=== PATIENT | female | born 1995 | race Hispanic/Latino ===

== ENCOUNTER 2021-12-12 02:23 | Inpatient (IN) | payer OTHER ==
[2021-12-12 02:48] VITALS: BMI 32.5
[2021-12-12 03:43] LABS: Fetal Membranes Rupture No Membranes Rupture (No Rupture)
[2021-12-12] MEDS ORDERED: hydrALAZINE 20 MG/ML VIAL SLOW IVP PRN ×2 (06:25→08:10)
[2021-12-12 07:04] LABS: Creatinine, Urine 31.22 mg/dL (47-110); Protein, Urine Random Quant Less than 10 mg/dL (1-14)
[2021-12-12] MEDS ORDERED: Bupivacaine/Epinephrine 0.25% 30 ML VIAL ONE (08:00)
[2021-12-12] MEDS ORDERED: Lidocaine 2% MPF 10 ML AMP (For Epidural Use) ONE (08:00)
[2021-12-12] MEDS ORDERED: Bupivacaine HCl 0.5%/Epinephrine 1:200,000/PF 30 ml Vial ONE (08:00)
[2021-12-12] MEDS ORDERED: ePHEDrine Sulfate 50 MG/10 ML VIAL ONE (08:00)
[2021-12-12] MEDS ORDERED: Ibuprofen 800 MG TAB PO PRN (08:10)
[2021-12-12] MEDS ORDERED: HYDROcodone/Acetaminophen 5/325 mg Tablet PO PRN (08:10)
[2021-12-12] MEDS ORDERED: Lidocaine 1% (PF) 30 ML VIAL SC PRN (08:10)
[2021-12-12] MEDS ORDERED: Ondansetron PF 4 MG/2 ML Vial IVP PRN (08:10)
[2021-12-12] MEDS ORDERED: Butorphanol Tartrate 1 MG/ML VIAL SLOW IVP PRN (08:10)
[2021-12-12] MEDS ORDERED: NS w/ Oxytocin 30 units 500 ML IV SCH ×2 (08:15→10:26)
[2021-12-12] MEDS ORDERED: Misoprostol 100 MCG TAB VAG SCH (08:15)
[2021-12-12] MEDS ORDERED: Lactated Ringer's 1,000 ML IV SCH (08:15)
[2021-12-12 09:19] LABS: Hemoglobin 13.3 g/dL (12.0-15.5); Mean Corpuscular Hemoglobin 28.2 pg (27.0-33.0); Mean Corpuscular Volume 85.6 fl (81.6-98.3); Mean Platelet Volume 10.8 fl (7.4-10.4); Platelet Count 259 10x3/uL (150-450); Red Blood Cell (RBC) Count 4.71 10x6/uL (3.90-5.03); White Blood Cell (WBC) Count 10.2 10x3/uL (3.5-10.5)
[2021-12-12] MEDS: Lactated Ringer's 1,000 ML IV SCH ×3 (09:30→16:02)
[2021-12-12 09:43] LABS: ALT (SGPT) 19 U/L (8-55); AST (SGOT) 28 U/L (5-34); Albumin 3.8 g/dL (3.5-5.0); Alkaline Phosphatase 160 U/L (40-110); Anion Gap 15 mmol/L (10-20); BUN (Urea Nitrogen) 11 mg/dL (7.0-18.7); Bilirubin, Total 0.4 mg/dL (0.2-1.2); Calc. Creatinine Clearance 165 mL/min (70-130); Calcium 9.1 mg/dL (7.8-10.44); Carbon Dioxide 21 mmol/L (22-29); Chloride 104 mmol/L (98-107); Globulin 3.4 g/dL (2.4-3.5); Glucose 77 mg/dL (70-105); Protein, Total 7.2 g/dL (6.0-8.3); Sodium 136 mmol/L (136-145)
[2021-12-12 09:54] LABS: Hep B Surf Ag Non-Reactive S/CO (NonReactive)
[2021-12-12 09:55] LABS: Syphilis Antibody Nonreactive (Nonreactive); Syphilis Antibody Index 0.03 S/CO (<1.00 Non-Reactive)
[2021-12-12 09:57] LABS: HBSAg Index 0.19 S/CO (0-0.99)
[2021-12-12] MEDS ORDERED: NS w/ Oxytocin 10 units 500 ML IV SCH (10:30)
[2021-12-12] MEDS ORDERED: Fentanyl 2 mcg/Bup 0.1% Cadd 100 ML ONE (14:50)
[2021-12-13] MEDS ORDERED: Boostrix 0.5 ML (Tdap) VIAL IM ONE (00:12)
[2021-12-13] MEDS ORDERED: Promethazine HCl 25 MG/ML VIAL IM PRN (00:12)
[2021-12-13] MEDS ORDERED: Milk Of Magnesia 30 ML UDCUP PO PRN (00:12)
[2021-12-13] MEDS ORDERED: Lanolin Ointment 7 GM TUBE TOP PRN (00:12)
[2021-12-13] MEDS ORDERED: Ondansetron PF 4 MG/2 ML Vial IVP PRN (00:12)
[2021-12-13] MEDS ORDERED: diphenhydrAMINE 25 MG CAP PO PRN (00:12)
[2021-12-13] MEDS ORDERED: Bisacodyl 10 MG SUPP PR PRN (00:12)
[2021-12-13] MEDS ORDERED: hydrALAZINE 20 MG/ML VIAL SLOW IVP PRN (00:12)
[2021-12-13] MEDS ORDERED: HYDROcodone/Acetaminophen 5/325 mg Tablet PO PRN (00:12)
[2021-12-13] MEDS ORDERED: NS w/ Oxytocin 30 units 500 ML IV SCH (00:12)
[2021-12-13] MEDS ORDERED: Benzocaine-Menthol 82.5 ML CAN TOP PRN (00:12)
[2021-12-13 04:27] LABS: Mean Corpuscular HGB CONC 34.5 g/dL (32.0-36.0); Mean Corpuscular Hemoglobin 29.4 pg (27.0-33.0); Mean Corpuscular Volume 85.3 fl (81.6-98.3); Mean Platelet Volume 11.2 fl (7.4-10.4); Platelet Count 215 10x3/uL (150-450); RBC Distribution Width 14.9 % (11.5-14.5); White Blood Cell (WBC) Count 16.3 10x3/uL (3.5-10.5)
[2021-12-13] MEDS: Ibuprofen 800 MG TAB PO SCH ×3 (06:13→21:52)
[2021-12-13] MEDS: Ferrous Sulfate 325 MG TAB PO SCH (07:30)
[2021-12-13] MEDS: HYDROcodone/Acetaminophen 5/325 mg Tablet PO PRN ×2 (08:28→15:43)
[2021-12-13] MEDS: Prenatal Vitamin 1 TAB PO SCH (08:29)
[2021-12-13] MEDS: Docusate 100 MG CAP PO SCH ×2 (08:29→21:52)
[2021-12-13] MEDS ORDERED: cloNIDine 0.1 MG TAB PO PRN (15:33)
[2021-12-14] MEDS: Ibuprofen 800 MG TAB PO SCH ×3 (05:11→15:16)
[2021-12-14] MEDS: Ferrous Sulfate 325 MG TAB PO SCH (07:30)
[2021-12-14 07:45] VITALS: BP 114/55; TEMP 98.8
[2021-12-14] MEDS: Docusate 100 MG CAP PO SCH (09:26)
[2021-12-14] MEDS: Prenatal Vitamin 1 TAB PO SCH (09:26)
== END 2021-12-14 16:00 | disposition home or self-care (01) | DRG 807 ==
LOC: CSHLD/OP 02:23 → CSHLD 08:59 → CSHPP 12-13 01:40
PROVIDERS: ADMIT Family Medicine; ATTEND Family Medicine
PROC: 10E0XZZ Delivery of Products of Conception, External Approach (ICD-10-PCS; principal; 2021-12-12)
PROC: 0KQM0ZZ Repair Perineum Muscle, Open Approach (ICD-10-PCS; 2021-12-12)
PROC: 10907ZC Drainage of Amniotic Fluid, Therapeutic from Products of Conception, Via Natural or Artificial Opening (ICD-10-PCS; 2021-12-12)
PROC: 3E033VJ Introduction of Other Hormone into Peripheral Vein, Percutaneous Approach (ICD-10-PCS; 2021-12-12)
DX: O13.4 Gestational [pregnancy-induced] hypertension without significant proteinuria, complicating childbirth (principal); Z37.0 Single live birth; Z3A.39 39 weeks gestation of pregnancy; Z79.82 Long term (current) use of aspirin; O70.1 Second degree perineal laceration during delivery
CPT/HCPCS: 36415; 51702; 80053; 82570; 84112; 84156; 85027; 86780; 86850; 86900; 86901; 87340; 99285; J0595; J2590; J7120

== ENCOUNTER 2022-05-17 18:21 | Emergency (ER) | payer MEDICAID, OTHER | END 2022-05-17 20:04 | disposition home or self-care (01) | LOC: CSHERS 18:21 | DX: A08.4 Viral intestinal infection, unspecified (principal) | CPT/HCPCS: 99283 ==